=== PATIENT | female | born 1950 | race Caucasian/White ===

== ENCOUNTER 2017-02-01 08:25 | Emergency (ER) | payer OTHER ==
[~2017-02-01] VITALS: Ht 167.6 cm; Wt 74.1 kg
[2017-02-01 08:29] VITALS: BP 172/80; TEMP 36.8; Ht 167.6 cm; Wt 74.1 kg
[2017-02-01] MEDS ORDERED: AMLO-110 PO (08:43)
[2017-02-01] MEDS ORDERED: ANS100 PO (08:43)
[2017-02-01] MEDS ORDERED: PROPARACAINE HCL 0.5% OP SOLN 15 ML BTL ONE (08:46)
[2017-02-01] MEDS ORDERED: CEPH500C2 PO (09:00)
--- NOTE | 2017-02-01 09:00 | EMERGENCY ROOM VISIT NOTE ---
ED Visit Note First contact with patient: 08:36 CHIEF COMPLAINT: Swelling around right eye 2 days HISTORY OF PRESENT ILLNESS: Patient is a 66-year-old white female who presents to the emergency department for evaluation of right periorbital swelling 2 days. Patient states that she was outside most of the day working in her yard. She went out in the evening to spray things down. She denies noting any specific injury, did not feel that she was bitten or stung by anything, and did not notice anything until Friday (yesterday) morning. She states that she was wiping off her face with a washcloth, and she noted that it was sore around her cheondoism. She noted that it was slightly swollen and a little bit firm to the touch. Throughout the day she noted swelling above her right eye which then developed below the eye. She tried taking an anti-inflammatory medicine, and applied ice yesterday. She notes slight itching over the cheondoism where she suspects that she might have been bitten or stung. Her eye globe is not involved. She denies any eye pain or discharge or changes in her vision. She has no symptoms in the left eye. She does wear glasses. REVIEW OF SYSTEMS: Review of systems as per HPI. All other systems reviewed were negative. At least 6 systems reviewed. PMH: Electronic medical records are reviewed and summarized as above/below. See Problem List. Tetanus is up-to-date. SOCIAL HISTORY: Patient lives at home. Smoker. PHYSICAL EXAM: Vital Signs: Reviewed Nurse's notes. CONSTITUTIONAL: Patient is a well-appearing 66-year-old white female who is awake and alert and in no acute distress. HEENT: Normocephalic, atraumatic. Pupils equal, round, reactive to light and accommodation. EOMs intact without nystagmus. No conjunctival injection. No drainage or discharge noted. Sclera are anicteric. Tympanic membranes intact, with normal landmarks. External canals are clear. Oral and nasopharynx are clear. Mucous membranes are moist. No pharyngeal edema or injection. Airway patent. INTEGUMENTARY: Examination of the patient's face do show a small, scabbed over lesion in the right cheondoism area that does appear consistent with an insect sting /bite. There is slight induration and erythema noted around the suspected bite site. She has right periorbital edema without erythema, induration or tenderness. Skin is otherwise intact. EMERGENCY DEPARTMENT COURSE: The patient was seen and evaluated as above. She has swelling around the right eye, with evidence for some type of insect bite or sting near the right cheondoism. Differential diagnosis includes cellulitis, contact dermatitis, allergic reaction, among others. The globe is not involved. I do not suspect shingles or corneal etiology. Conservative care measures were discussed. She was encouraged to use Benadryl for the antihistamine effect, and was given a prescription for Keflex although advised only to use this if she notices worsening signs of infection, as I suspect that her symptoms are largely allergic/inflammatory at this time. She was encouraged to return to the emergency department for any worsening symptoms. Problem List Medical Problems: (1) Hypertension Nos Status: Chronic Current/Historical Medications Scheduled Amlodipine (Norvasc), Unknown Dose PO DAILY Cephalexin Monohydrate (Keflex), 500 MG PO TID Flurbiprofen (Flurbiprofen), 1 TAB PO DAILY Scheduled PRN Diphenhydramine Hcl (Benadryl Allergy), 1 CAP PO Q8 PRN for swelling Allergies Coded Allergies: Penicillins (Unverified Allergy, Unknown, unknown, 02/01/17) Vital Signs Date Time Temp Pulse Resp B/P Pulse Ox O2 Delivery O2 Flow Rate FiO2 02/01/17 09:22 106 96 Room Air 02/01/17 08:29 36.8 119 18 172/80 99 Room Air Departure Information Impression Primary Impression: Periorbital edema of right eye Prescriptions Diphenhydramine Hcl (BENADRYL ALLERGY) 25 Mg Cap 1 CAP PO Q8 Y for swelling for 30 Days, #30 CAP 1 Refill Prov: Charly Richardson, D.OAnam 02/01/17 Cephalexin Monohydrate (KEFLEX) 500 Mg Cap 500 MG PO TID, #15 CAP Prov: Juli Desouza PA 02/01/17 Referrals Shanon Raymundo M.D. (PCP) Patient Instructions My [facility] Additional Instructions Cool compresses to the area for the next one to 2 days. Diphenhydramine(Benadryl) 25mg: use 25 to 50 mg as needed every six hours for swelling, itching, or hives. This medication is sedating and will cause drowsiness. Avoid alcohol, operating machinery or dangerous equipment, working on ladders or roofs, DRIVING, or situations where being under the influence may be dangerous. Return to the emergency department for worsening of your rash, increasing redness, warmth, drainage, fevers swelling of your lips, tongue, or throat, difficulty breathing, vomiting, or as needed. Follow-up with your primary care physician in 2-3 days for a recheck of your current condition.
[2017-02-01] MEDS ORDERED: DIPH25CA65 PO (09:04)
--- NOTE | 2017-02-01 09:06 | EMERGENCY ROOM VISIT NOTE ---
ED Visit Note First contact with patient: 08:36 I have personally evaluated and examined this patient. I agree with assessment and plan of Massiel Desouza PA-C. Patient is a 66-year-old female with swelling of the right upper eyelid, she believes secondary to a bug bite, this possible early facial/preseptal cellulitis was placed on Keflex, also given Benadryl for possible local atopic dermatitis/contact dermatitis
[2017-02-01 09:22] VITALS: PULSE 106; O2SAT 96
== END 2017-02-01 09:28 | disposition home or self-care (01) ==
LOC: C.EDB 08:26 → C.EDA 09:28
DX: R60.9 Edema, unspecified (principal); I10 Essential (primary) hypertension; F17.200 Nicotine dependence, unspecified, uncomplicated; Z79.899 Other long term (current) drug therapy; Z88.0 Allergy status to penicillin

== ENCOUNTER → 2017-04-02 | Outpatient (CLI) | payer OTHER ==
[~2017-04-02] MED LIST: AMLO-110 PO; ANS100 PO; CEPH500C2 PO; DIPH25CA65 PO
[2017-04-02 12:12] LABS: BASO % 0.6 %; BASO ABS # 0.04 K/uL (0-0.2); COMPLETE YES; EOS % 2.5 %; HEMATOCRIT 43.1 % (37-47); IG% 0.3 %; LYMPH % 24.8 %; LYMPH ABS # 1.78 K/uL (1.2-3.4); MEAN CELL VOLUME 96.2 fL (80-100); MEAN CORPUSCULAR HEMOGLOBIN 31.7 pg (25-34); MEAN CORPUSCULAR HGB CONC 32.9 g/dl (32-36); MEAN PLATELET VOLUME 9.8 fL (7.4-10.4); MONO % 9.6 %; NEUT % 62.2 %; PLATELET COUNT 267 K/uL (130-400); RED BLOOD COUNT 4.48 M/uL (4.2-5.4); WHITE BLOOD COUNT 7.17 K/uL (4.8-10.8)
[2017-04-02 12:47] LABS: ALT/SGPT 18 U/L (12-78); BLOOD UREA NITROGEN 10 mg/dl (7-18); BUN/CREATININE RATIO 11.7 (10-20); CARBON DIOXIDE 28 mmol/L (21-32); CHLORIDE 104 mmol/L (98-107); CHOLESTEROL 185 mg/dl (0-200); CREATININE 0.88 mg/dl (0.60-1.20); GLUCOSE 85 mg/dl (70-99); SODIUM 139 mmol/L (136-145); TRIGLYCERIDES 149 mg/dl (0-150); VERY LOW DENSITY LIPOPROT CALC 30 mg/dl
[2017-04-02 12:49] LABS: CALCIUM 9.7 mg/dl (8.5-10.1)
[2017-04-02 13:06] LABS: ALB/GLOB RATIO 0.9 (0.9-2); ALKALINE PHOSPHATASE 72 U/L (45-117); AST/SGOT 15 U/L (15-37); CHOLESTEROL/HDL RATIO 4.1; HDL CHOLESTEROL 45 mg/dl; LDL CHOLESTEROL CALCULATED 110 mg/dl
== END | disposition home or self-care (01) ==
LOC: C.LABBFT 09:38
PROVIDERS: ATTEND Internal Medicine
DX: Z00.00 Encounter for general adult medical examination without abnormal findings (principal); I10 Essential (primary) hypertension; M06.9 Rheumatoid arthritis, unspecified; E78.5 Hyperlipidemia, unspecified

== ENCOUNTER → 2017-09-23 | Outpatient (CLI) | payer OTHER ==
[~2017-09-23] MED LIST changes: -CEPH500C2 PO
[2017-09-23 18:05] LABS: BLOOD UREA NITROGEN 12 mg/dl (7-18); BUN/CREATININE RATIO 13.3 (10-20); CALCIUM 9.5 mg/dl (8.5-10.1); CARBON DIOXIDE 29 mmol/L (21-32); CHLORIDE 102 mmol/L (98-107); CREATININE 0.88 mg/dl (0.60-1.20); GLUCOSE 110 mg/dl (70-99); POTASSIUM 3.6 mmol/L (3.5-5.1); SODIUM 137 mmol/L (136-145)
== END | disposition home or self-care (01) ==
LOC: C.LABBFT 14:00
PROVIDERS: ATTEND Internal Medicine
DX: Z00.00 Encounter for general adult medical examination without abnormal findings (principal); I10 Essential (primary) hypertension; M06.9 Rheumatoid arthritis, unspecified; L04.9 Acute lymphadenitis, unspecified